=== PATIENT | male | born 1965 | race African-American/Black ===

== ENCOUNTER → 2019-05-01 | Outpatient (CLI) | payer OTHER ==
--- NOTE | 2019-05-01 10:44 | PCVCIMAG ---
APPROVED REPORT Study performed: 05/01/2019 08:48:10 EXAM: Comprehensive 2D, Doppler, and color-flow Echocardiogram Patient Location: Echo lab Room #: 2Status: routine BSA: 2.22 HR: 77 bpmBP: 130/82 mmHg Rhythm: NSR Other Information Study Quality: Good Risk Factors: Cardiac Risk Factors: HTN Indications Pacemaker CAD Cardiomyopathy Hx: Nonischemis cardiomyopathy, Stent RCA 2D Dimensions IVSd: 9.78 (7-11mm)LVOT Diam: 26.22 (18-24mm) LVDd: 50.00 mm PWd: 10.03 (7-11mm)Ascending Ao: 32.34 (22-36mm) LVDs: 31.55 (25-40mm) Left Atrium: 33.08 (27-40mm) Aortic Root: 34.51 mm LV Single Plane 4CH: 61.93 % LV Single Plane 2CH: 61.55 % Biplane EF: 60.8 % Volumes Left Atrial Volume (Systole) Single Plane 4CH: 64.39 mLSingle Plane 2CH: 113.57 mL Biplane LA Volume: 86.00 mLLA ESV Index: 39.00 mL/m2 Aortic Valve AoV Peak Honorio.: 1.31 m/s AO Peak Gr.: 6.84 mmHgLVOT Max P.85 mmHg LVOT Max V: 0.84 m/s ERIC Vmax: 3.48 cm2 Mitral Valve E/A Ratio: 1.3 MV Decel. Time: 118.82 ms MV E Max Honorio.: 0.48 m/s MV A Honorio.: 0.38 m/s IVRT: 65.74 ms TDI E/Lateral E': 5.33E/Medial E': 8.00 Medial E' Honorio.: 0.06 m/s Lateral E' Honorio.: 0.09 m/s Pulmonary Valve PV Peak Honorio.: 1.11 m/sPV Peak Gr.: 4.89 mmHg Pulmonary Vein P Vein S: 0.56 m/sP Vein A: 0.21 m/s P Vein D: 0.53 m/sP Vein A Dur.: 79.6 msec P Vein S/D Ratio: 1.06 Tricuspid Valve TR Peak Honorio.: 2.49 m/s TR Peak Gr.: 24.85 mmHg TV Vmax: 1.09 m/sPA Pressure: 32.00 mmHg Left Ventricle The left ventricle is normal size. There is normal LV segmental wall motion. There is normal left ventricular wall thickness. Left ventricular systolic function is normal. The left ventricular ejection fraction is within the normal range. LVEF is 60-65%. Grade II - pseudonormal filling dynamics. Right Ventricle The right ventricle is normal size. The right ventricular systolic function is normal. Pacemaker lead is present in the right ventricle. Atria Left atrium is mildly dilated. Pacemaker lead is present in the right atrium. Aortic Valve Aortic valve is trileaflet. The aortic valve is normal in structure and function. No aortic regurgitation is present. There is no aortic valvular stenosis. Mitral Valve The mitral valve is normal in structure. There is no mitral valve regurgitation noted. No evidence of mitral valve stenosis. Tricuspid Valve The tricuspid valve is normal in structure. Mild tricuspid regurgitation with a PA pressure of 32 mmHg. Mild pulmonary hypertension. Pulmonic Valve The pulmonary valve is normal in structure. There is no pulmonic valvular regurgitation. Great Vessels The aortic root is normal in size. The ascending aorta is normal in size. Aortic arch is normal in caliber. IVC is normal in size and collapses >50% with inspiration. Pericardium There is no pericardial effusion. There is no pleural effusion. <Conclusion> The left ventricle is normal size. There is normal left ventricular wall thickness. Left ventricular systolic function is normal. Grade II - pseudonormal filling dynamics. The right ventricle is normal size. Pacemaker lead is present in the right ventricle. Left atrium is mildly dilated. The aortic valve is normal in structure and function. There is no mitral valve regurgitation noted. Mild tricuspid regurgitation with a PA pressure of 32 mmHg.
== END | disposition home or self-care (01) ==
LOC: PCVCIMAG 09:37
PROVIDERS: ATTEND Internal Medicine Cardiovascular Disease
DX: I07.1 Rheumatic tricuspid insufficiency (principal); I25.10 Atherosclerotic heart disease of native coronary artery without angina pectoris; I47.1 Supraventricular tachycardia; I42.8 Other cardiomyopathies; I27.20 Pulmonary hypertension, unspecified; Z87.891 Personal history of nicotine dependence
CPT/HCPCS: 93306